=== PATIENT | male | born 1960 | race Caucasian/White ===

== ENCOUNTER 2016-10-29 10:01 | Day surgery (SDC) | payer BC ==
[2016-10-25 11:28] VITALS: BMI 27.3
[~2016-10-29 10:01] MED LIST: LACTATED RINGERS 1,000 ML IV ONE; LIDOCAINE 1% 20 ML VIAL (10MG/ML) FOR IV START INTRADERMA PRN
[2016-10-29 11:56] VITALS: RESP 16; TEMP 97
[2016-10-29] MEDS ORDERED: PROPOFOL 10 MG/ML 20 ML VIAL IV ONE (12:12)
--- NOTE | 2016-10-29 12:44 | P.PCN ---
Date of Procedure: 10/29/16 Procedure(s) Performed: Procedure: Colonoscopy and biopsy. Preoperative diagnosis: Screening for neoplasia. Postoperative diagnosis: 1. Sigmoid diverticulosis with no evidence of acute diverticulitis or strictures. 2. Small sigmoid polyp biopsied but no large polyps or cancer. Preparation: HalfLytely prep. Sedation: Was provided by anesthesia. Brief clinical history: The patient is a 55-year-old male who is referred for this evaluation for screening for neoplasia, age being his risk factor. He has no abdominal complaints, bleeding or anemia. No family history of colon cancer. This would be his first colonoscopy. Procedure: With the patient on his left lateral decubitus position, and after informed consent and adequate sedation, the perianal area was inspected and it did not show any fissures or fistulas. There were no masses felt on digital rectal examination. The Olympus CFQ 160L video colonoscope was then inserted in the rectum in the usual fashion and advanced to the cecum. There were multiple diverticular orifices seen scattered in the sigmoid but I saw no evidence of acute diverticulitis or strictures. In the sigmoid, around 30 cm from the anal verge, there was a small polyp consistent with hyperplastic polyp which I biopsied. There were no large polyps or cancer or other pathology. I retroflexed endoscope in the rectum before the endoscope was withdrawn. The patient tolerated the procedure well. Plan: The patient was reassured. Discussed dietary measures. Will await biopsy results. Consideration will be given for repeat exam in 5 years.
[2016-10-29 13:00] VITALS: BP 1115/67; PULSE 66
== END 2016-10-29 13:16 | disposition home or self-care (01) ==
LOC: ORWHC2ENDO 10:01
DX: Z12.11 Encounter for screening for malignant neoplasm of colon (principal); D12.5 Benign neoplasm of sigmoid colon; K57.30 Diverticulosis of large intestine without perforation or abscess without bleeding; I10 Essential (primary) hypertension; E78.5 Hyperlipidemia, unspecified; Z79.899 Other long term (current) drug therapy
CPT/HCPCS: 88305; 45380; J2704; 99153

== ENCOUNTER → 2019-12-05 | Outpatient (CLI) | payer OTHER ==
--- NOTE | 2019-12-05 17:31 | MR ---
EXAMINATION TYPE: MR shoulder LT wo con DATE OF EXAM: 12/05/2019 COMPARISON: None HISTORY: Left shoulder pain Multiplanar multiecho imaging of the left shoulder is performed without contrast. There is large shoulder joint effusion. There is fluid around the biceps tendon. There is small amoun t of fluid in the subdeltoid bursa. There is full-thickness vertical tear through the supraspinatus t endon. There is no retraction. There is increased signal in the tendon at the greater tuberosity of t he humerus. There is spurring and degenerative cyst formation at the AC joint. I see no fracture line. The glenoi d ania appear intact. Humeral head is intact. IMPRESSION: Large shoulder joint effusion consistent with synovitis. Full-thickness tear of the supraspinatus ten don near the greater tuberosity of the humerus. No retraction. 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
== END | disposition home or self-care (01) ==
LOC: RADMRIMAIN 08:39
PROVIDERS: ATTEND Family Medicine
DX: M75.122 Complete rotator cuff tear or rupture of left shoulder, not specified as traumatic (principal); M19.012 Primary osteoarthritis, left shoulder

== ENCOUNTER 2020-08-09 07:00 | Day surgery (SDC) | payer OTHER ==
[2020-08-05 08:46] VITALS: BMI 28.1
[~2020-08-09 07:00] MED LIST changes: +ACETAMINOPHEN TAB 500 MG TAB PO ONE; +DEXAMETHASONE SOD PHOSPHATE 10 MG/ML 1 ML VIAL IV ONE; +HEPARIN SODIUM,PORCINE 5,000 UNIT/ML 1 ML VIAL SQ ONE; -LACTATED RINGERS 1,000 ML IV ONE; +LACTATED RINGERS 1,000 ML IV SCH; +LIDOCAINE 1% (10MG/ML) FOR IV START INTRADERMA PRN; -LIDOCAINE 1% 20 ML VIAL (10MG/ML) FOR IV START INTRADERMA PRN; +ONDANSETRON 4 MG/2 ML VIAL IVP ONE; +SCOPOLAMINE 1.5MG/72HR PATCH TRANSDERM ONE
[2020-08-09] MEDS ORDERED: MIDAZOLAM 2 MG/2 ML VIAL IVP ONE (08:28)
[2020-08-09] MEDS ORDERED: fentaNYL (PF) 50 MCG/ML 2 ML AMP IVP ONE (08:28)
--- NOTE | 2020-08-09 09:20 | P.GSHP ---
History of Present Illness H&P Date: 08/09/20 Chief Complaint: Incarcerated umbilical hernia This is a 59-year-old male who presents today for laparoscopic robotic-assisted repair of incarcerated umbilical hernia. Patient developed a tender mass at his umbilicus. Past Medical History Past Medical History: Eye Disorder, Hyperlipidemia, Hypertension Additional Past Medical History / Comment(s): had rentinal occlusion rt eye, blind in right eye, chaparro legs pain, buzzing in ears History of Any Multi-Drug Resistant Organisms: None Reported Past Surgical History: Back Surgery, Orthopedic Surgery Additional Past Surgical History / Comment(s): rt foot bunionectomy,rt eye laser sx x2, metal in back. spinal fusion, lt rotator cuff Past Anesthesia/Blood Transfusion Reactions: No Reported Reaction Smoking Status: Former smoker - Past Family History Mother Family Medical History: No Reported History Medications and Allergies Home Medications Medication Instructions Recorded Confirmed Type Atorvastatin [Lipitor] 20 mg PO HS 10/25/16 08/05/20 History Gabapentin [Neurontin] 300 mg PO TID 10/25/16 08/05/20 History Losartan [Cozaar] 50 mg PO BID 10/25/16 08/05/20 History Allergies Allergy/AdvReac Type Severity Reaction Status Date / Time No Known Allergies Allergy Verified 08/09/20 08:04 Surgical - Exam Vital Signs Temp Pulse Resp BP Pulse Ox 97.1 F L 79 16 158/96 98 08/09/20 07:57 08/09/20 07:57 08/09/20 07:57 08/09/20 07:57 08/09/20 07:57 - General well developed, well nourished, no distress - Eyes PERRL - ENT normal pinna - Neck no masses - Respiratory normal expansion - Cardiovascular Rhythm: regular - Abdomen Abdomen: soft, non tender Hernia: umbilical (3 cm incarcerated umbilical hernia) Assessment and Plan Assessment: Incarcerated umbilical hernia. We'll perform laparoscopic robotic-assisted repair.
[2020-08-09] MEDS ORDERED: SUCCINYLCHOLINE CHLORIDE 100 MG/5 ML SYR IV ONE (09:37)
[2020-08-09] MEDS ORDERED: PROPOFOL 10 MG/ML 20 ML VIAL IV ONE (09:37)
[2020-08-09] MEDS ORDERED: PHENYLEPHRINE-0.9% NACL SYG 1 MG/10 ML SYRINGE ONE (09:37)
[2020-08-09] MEDS ORDERED: GLYCOPYRROLATE 0.2 MG/ML 2 ML VIAL ONE (09:37)
[2020-08-09] MEDS ORDERED: KETAMINE 10 MG/ML 20 ML VIAL ONE (09:37)
[2020-08-09] MEDS ORDERED: KETOROLAC 15 MG/ML 1 ML VIAL ONE (09:37)
[2020-08-09] MEDS ORDERED: MIDAZOLAM 2 MG/2 ML VIAL ONE (09:37)
[2020-08-09] MEDS ORDERED: LIDOCAINE 1% INJ 10MG/ML (20 ML MDV) ONE (09:37)
[2020-08-09] MEDS ORDERED: fentaNYL (PF) 50 MCG/ML 2 ML AMP ONE (09:37)
[2020-08-09] MEDS ORDERED: NEOSTIGMINE 1 MG/ML 10 ML VIAL ONE (09:37)
[2020-08-09] MEDS ORDERED: ROPIVACAINE 5 MG/ML 30 ML VIAL ONE (09:37)
[2020-08-09] MEDS ORDERED: ROCURONIUM 10 MG/ML (10 ML VIAL) IV ONE (09:37)
[2020-08-09] MEDS ORDERED: BUPIVACAINE (PF) 0.25% 30 ML VIAL SQ ONE ×2 (10:07)
[2020-08-09] MEDS ORDERED: LACTATED RINGERS 1,000 ML IV ONE (10:27)
--- NOTE | 2020-08-09 10:29 | P.ANPRN ---
Procedure Note - Anesthesia - Nerve Block Performed Bilateral Rectus Abdominis Single Time Out Performed: Yes ([id number]) Date of Procedure: 08/09/20 Procedure Start Time: : Procedure Stop Time: :34 Location of Patient: PreOp Indication: Acute Post-Operative Pain, Requested by Surgeon Specifically requested for management of pain by DrHuber: Matthew Roach Sedation Type: Sedate with meaningful contact maintained Preparation: Sterile Prep Position: Supine Catheter: None Needle Types: Pajunk Needle Gauge: 21 Ultrasound used to visualize needle placement: Yes Ultrasound used to observe medication spread: Yes Injectate: 0.5% Ropivacaine (see comment for volume) (15cc each side) Blood Aspirated: No Pain Paresthesia on Injection Noted: No Resistance on Injection: Normal Image Stored and Saved: Yes Events: Uneventful and Well Tolerated
--- NOTE | 2020-08-09 10:39 | P.OP ---
Date of Procedure: 08/09/20 Preoperative Diagnosis: Incarcerated umbilical hernia Postoperative Diagnosis: Incarcerated umbilical hernia Procedure(s) Performed: Laparoscopic robotic-assisted repair of incarcerated umbilical hernia Partial omentectomy Anesthesia: ASA Surgeon: Matthew Roach Estimated Blood Loss (ml): 5 Pathology: other (Omentum) Condition: stable Disposition: PACU Description of Procedure: The patient was placed on the operating table in the supine position. He received general anesthesia. His abdomen was prepped and draped usual fashion. Using a 5 mm optical trocar under direct visualization the peritoneal cavity was entered in the left upper quadrant. The abdomen was then insufflated. The laparoscope was placed back into the perineal cavity. Next a 8 mm robotic trocar was placed in the left lower quadrant and a 12 mm robotic trocar was placed in the left lateral position. The original 5 mm trocar was exchanged for a 8 mm robotic trocar. The patient's placed in the left side up position. And the patient was undocked the robot. The umbilical hernia was visualized. Using hook cautery the peritoneum over the umbilical hernia was excised. Pressure omentum and hernia sac was then transected with J cautery and sent to pathology. The fascial opening was rep aired using 0V LOC suture. Next a piece of 11 cm round ventral light ST mesh was placed into the. Cavity and secured with 2 OV lock suture. The patient was undocked the robot. The needles were retrieved. The fascia of the 12 mm trocar site was closed with 0 Ethibond suture. Skin was closed interrupted 3-0 Monocryl suture. Dermabond dressings was applied. Patient top procedure well and was sent to recovery room stable condition.
[2020-08-09 10:56] VITALS: TEMP 96.8
[2020-08-09] MEDS: HYDROmorphone 0.5 MG/0.5 ML SYRINGE IVP PRN ×2 (11:11→11:23)
[2020-08-09 11:30] VITALS: RESP 16
[2020-08-09 11:52] VITALS: PULSE 85
[2020-08-09 12:01] VITALS: BP 157/95
== END 2020-08-09 13:03 | disposition home or self-care (01) ==
LOC: OR 07:00
PROVIDERS: ATTEND Surgery
DX: K42.0 Umbilical hernia with obstruction, without gangrene (principal); I10 Essential (primary) hypertension; E78.5 Hyperlipidemia, unspecified; G47.33 Obstructive sleep apnea (adult) (pediatric); H54.61 Unqualified visual loss, right eye, normal vision left eye; Z99.89 Dependence on other enabling machines and devices; Z79.899 Other long term (current) drug therapy; Z87.891 Personal history of nicotine dependence; Z98.1 Arthrodesis status; Z98.890 Other specified postprocedural states
CPT/HCPCS: 64486; 88302; 49653; C1781; J2250; J1644; J1100; J2710; J0690; J2405; J2001; J3010; J2795; J1885; J2370; J0330; J2704; J1170

== ENCOUNTER → 2023-01-28 | Outpatient (CLI) | payer BC ==
[2023-01-28 11:50] LABS: Basophils # (A) 0.05 X 10*3/uL (0.00-0.10); Basophils % (A) 0.8 %; Eosinophils # (A) 0.26 X 10*3/uL (0.04-0.35); HCT 47.3 % (39.6-50.0); HGB 15.6 g/dL (13.0-17.0); Immature Grans, Automated 0.3 %; Lymphocytes # (A) 1.83 X 10*3/uL (0.90-5.00); Lymphocytes % (A) 27.9 %; MCH 28.9 pg (27.0-32.0); MCV 87.6 fL (80.0-97.0); Mean Platelet Volume 9.8 fL (9.5-12.2); Monocytes % (A) 9.1 %; NRBC Per 100 WBC 0 /100 WBCS (0.0-0.0); Neutrophils # (A) 3.81 X 10*3/uL (1.80-7.70); Neutrophils % (A) 57.9 %; Platelet Count 233 X 10*3/uL (140-440); RDW 12.5 % (11.5-14.5); WBC 6.57 X 10*3/uL (4.50-10.00)
[2023-01-28 12:01] LABS: African American GFR (CKD) 74.1 (60.0-200.0); Anion Gap 9.3 mmol/L (10.00-18.00); BUN/Creat Ratio 16.42 Ratio (12.00-20.00); Blood Urea Nitrogen 19.7 mg/dL (9.0-27.0); Calcium 9.3 mg/dL (8.7-10.3); Carbon Dioxide 25.7 mmol/L (20.0-27.5); Potassium 5.3 mmol/L (3.5-5.5)
[2023-01-28 12:09] LABS: Hepatitis B Surface AB- Quant 3.5 mIU/mL; Hepatitis B Surface Antibody Nonreactive (Nonreactive)
[2023-01-28 12:23] LABS: Hepatitis B Surface Antigen Nonreactive (Nonreactive); Hepatitis C IgG Antibody Nonreactive (Nonreactive)
== END | disposition home or self-care (01) ==
LOC: LABWHC1 07:41
PROVIDERS: ATTEND Dermatology
DX: L40.0 Psoriasis vulgaris (principal)
CPT/HCPCS: 36415; 80048; 85025; 86480; 86704; 86706; 86803; 87340

== ENCOUNTER 2023-08-13 10:09 | Emergency (ER) | payer BC ==
--- NOTE | 2023-08-13 10:34 | ED ---
General Adult HPI - General Chief complaint: Recheck/Abnormal Lab/Rx Stated complaint: Swalled Tooth Filling Time Seen by Provider: 08/13/23 10:23 Source: patient, RN notes reviewed Mode of arrival: ambulatory Limitations: no limitations - History of Present Illness Initial comments: Patient is 62-year-old male presented to ER with chief complaint of swallowing a foreign body. Patient was at the dentist this morning when she felt like he swallowed and instrument. X-rays were done at the dentist office which shows foreign body is present. Patient states he feels discomfort feeling in his abdomen but denies any pain nausea vomiting. Patient denies difficulty breathing or swallowing. - Related Data Home Medications Medication Instructions Recorded Confirmed Atorvastatin [Lipitor] 20 mg PO HS 10/25/16 08/05/20 Gabapentin [Neurontin] 300 mg PO TID 10/25/16 08/05/20 Losartan [Cozaar] 50 mg PO BID 10/25/16 08/05/20 Previous Rx's Medication Instructions Recorded Acetaminophen Tab [Tylenol] 650 mg PO Q6H #30 tab 08/09/20 Docusate [Colace] 100 mg PO BID #20 capsule 08/09/20 Ibuprofen [Motrin] 600 mg PO Q6HR PRN #40 tab 08/09/20 oxyCODONE HCL [OxyIR] 5 mg PO Q4H PRN 3 Days #18 tab 08/09/20 Allergies Allergy/AdvReac Type Severity Reaction Status Date / Time No Known Allergies Allergy Verified 08/13/23 10:22 Review of Systems ROS Statement: Those systems with pertinent positive or pertinent negative responses have been documented in the HPI. ROS Other: All systems not noted in ROS Statement are negative. Past Medical History Past Medical History: Diabetes Mellitus, Hypertension Additional Past Medical History / Comment(s): had rentinal occlusion rt eye, blind in right eye, chaparro legs pain History of Any Multi-Drug Resistant Organisms: None Reported Past Surgical History: Back Surgery, Orthopedic Surgery Additional Past Surgical History / Comment(s): rt foot bunionectomyrt eye laser sx x2, metal in back Past Anesthesia/Blood Transfusion Reactions: No Reported Reaction Past Psychological History: No Psychological Hx Reported Smoking Status: Never smoker Past Alcohol Use History: Occasional Past Drug Use History: None Reported - Past Family History Mother Family Medical History: No Reported History General Exam Limitations: no limitations General appearance: alert, in no apparent distress Respiratory exam: Present: wheezes (bilaterally present) Cardiovascular Exam: Present: regular rate, normal rhythm, normal heart sounds. Absent: systolic murmur, diastolic murmur, rubs, gallop, clicks GI/Abdominal exam: Present: soft, normal bowel sounds. Absent: distended, tenderness, guarding, rebound, rigid Psychiatric exam: Present: normal affect, normal mood Skin exam: Present: warm, dry, intact, normal color. Absent: rash Course Vital Signs 08/13/23 08/13/23 08/13/23 10:19 11:34 11:56 Temperature 98.2 F 98 F Pulse Rate 73 77 Respiratory 18 18 18 Rate Blood Pressure 167/98 171/93 O2 Sat by Pulse 99 96 Oximetry Medical Decision Making - Medical Decision Making Was pt. sent in by a medical professional or institution (Dr. PA, ANIMAL PATHOLOGY TEACHER, urgent care, hospital, or residential...) When possible be specific @ -Yes his dentist Did you speak to anyone other than the patient for history (EMS, parent, family, police, friend...)? What history was obtained from this source @ -No Did you review nursing and triage notes (agree or disagree)? Why? @ -I reviewed and agree with nursing and triage notes Were old charts reviewed (outside hosp., previous admission, EMS record, old EKG, old radiological studies, urgent care reports/EKG's, residential records)? Report findings @ -No old charts were reviewed Differential Diagnosis (chest pain, altered mental status, abdominal pain women, abdominal pain men, vaginal bleeding, weakness, fever, dyspnea, syncope, headache, dizziness, GI bleed, back pain, seizure, CVA, palpatations, mental health, musculoskeletal)? @ -Foreign body, aspiration, choking EKG interpreted by me (3pts min.). @ -None X-rays interpreted by me (1pt min.). @ -Chest x-ray significant for metallic foreign body in distal esophagus. KUB does not show any foreign body. CT interpreted by me (1pt min.). @ -None done U/S interpreted by me (1pt. min.). @ -None done What testing was considered but not performed or refused? (CT, X-rays, U/S, labs)? Why? @ -None What meds were considered but not given or refused? Why? @ -None Did you discuss the management of the patient with other professionals (professionals i.e. DrHuber, PA, ANIMAL PATHOLOGY TEACHER, lab, RT, psych nurse, criminal justice social worker, php magento developer, teacher, space operations officer, shoe caser)? Give summary @ -[Yes, Dr. Beal will remove foreign body by EGD. Was smoking cessation discussed for >3mins.? @ -No Was critical care preformed (if so, how long)? @ -No Were there social determinants of health that impacted care today? How? (Homelessness, low income, unemployed, alcoholism, drug addiction, transportation, low edu. Level, literacy, decrease access to med. care, [facility], rehab)? @ -No Was there de-escalation of care discussed even if they declined (Discuss DNR or withdrawal of care, Hospice)? DNR status @ -No What co-morbidities impacted this encounter? (DM, HTN, Smoking, COPD, CAD, Cancer, CVA, ARF, Chemo, Hep., AIDS, mental health diagnosis, sleep apnea, morbid obesity)? @ -None Was patient admitted / discharged? Hospital course, mention meds given and route, prescriptions, significant lab abnormalities, going to OR and other pertinent info. @ -[Discharge. Patient is 62-year-old male presented to the ER with chief complaint of swallowing a foreign body at his dentist. Chest x-ray significant for metallic foreign body in distal esophagus. Patient will go to Endo and receive an EGD for removal of the foreign body by Dr. Beal. Patient will be discharged home in stable condition. Undiagnosed new problem with uncertain prognosis? @ -No Drug Therapy requiring intensive monitoring for toxicity (Heparin, Nitro, Insulin, Cardizem)? @ -No Were any procedures done? @ -No Diagnosis/symptom? @ -Foreign body in esophagus Acute, or Chronic, or Acute on Chronic? @ -Acute Uncomplicated (without systemic symptoms) or Complicated (systemic symptoms)? @ -Uncomplicated Side effects of treatment? @ -No Exacerbation, Progression, or Severe Exacerbation? @ -No Poses a threat to life or bodily function? How? (Chest pain, [place], [place], pneumonia, PE, COPD, DKA, ARF, appy, cholecystitis, CVA, Diverticulitis, Homicidal, Suicidal, threat to staff... and all critical care pts) @ -No Disposition Clinical Impression: Foreign body in esophagus Disposition: HOME SELF-CARE Condition: Stable Additional Instructions: Please return to the Emergency Department if symptoms worsen or any other concerns. Is patient prescribed a controlled substance at d/c from ED?: No Referrals: Taylor Boudreaux DO [Primary Care Provider] - 1-2 days Time of Disposition: 12:04
--- NOTE | 2023-08-13 11:41 | XR ---
EXAMINATION TYPE: XR chest 2V DATE OF EXAM: 08/13/2023 COMPARISON: None INDICATION: Foreign body TECHNIQUE: Frontal and lateral views of the chest are obtained. FINDINGS: The heart size is normal. The pulmonary vasculature is normal. The lungs are clear. There is a horseshoe shaped metallic type density within the mid chest can be related to a foreign nancy dy within the esophagus. This appears to lie below the level of the left bronchus. IMPRESSION: 1. Metallic foreign body appears to be within the distal esophagus region.
--- NOTE | 2023-08-13 11:46 | XR ---
EXAMINATION TYPE: XR KUB DATE OF EXAM: 08/13/2023 COMPARISON: Chest x-ray same date INDICATION: Foreign body TECHNIQUE: Single view abdomen upright view FINDINGS: There is a nonspecific bowel gas pattern. No suspicious air-fluid levels or differential air-fluid le vels are present. No free air is present. Psoas margins are normal. No organomegaly is present. No radiopaque foreign bodies are evident. The expected pedicle screws at L4 and L5 on the right remai n present and stable. See also chest x-ray report for suspected foreign body. IMPRESSION: 1. No suspicious radiopaque foreign bodies within the [id number].
[2023-08-13 12:14] VITALS: TEMP 98
[2023-08-13] MEDS ORDERED: PROPOFOL 10 MG/ML 20 ML VIAL IV ONE (12:19)
[2023-08-13] MEDS ORDERED: LIDOCAINE 1% INJ 10MG/ML (20 ML MDV) ONE (12:19)
[2023-08-13] MEDS ORDERED: SODIUM CHLORIDE 0.9% 500 ML IV ONE (12:34)
--- NOTE | 2023-08-13 12:35 | P.PCN ---
Date of Procedure: 08/13/23 Procedure(s) Performed: BRIEF HISTORY: Patient is a 62-year-old, pleasant, white male scheduled for an upper endoscopy as a part of evaluation of esophageal foreign body. He was advised his dentures for a tooth filling and while the procedure was being performed patient accidentally swallowed a metal ring. He was sent to the emergency room and a chest x-ray revealed the foreign body lodged in the midesophagus. Patient has been complaint of severe chest pain radiating to the back. He scheduled for an upper endoscopy with foreign body removal PROCEDURE PERFORMED: Esophagogastroduodenoscopy and foreign body removal. PREOPERATIVE DIAGNOSIS: Esophageal foreign body. IV sedation per anesthesia. PROCEDURE: After informed consent was obtained, the patient was brought into the endoscopy unit. IV sedation was administered by Anesthesia under continuous monitoring. Initially the Olympus GIF-140 video endoscope was inserted into the mouth. Esophagus intubated without any difficulty. The midesophagus there was a horse shoe shaped metal objject lodged in the mid esophagus and with the tripod I was able to dislodge the piece without any difficulty into the distal esophagus.. Following this I used a snare and gently grabbed the end of the object and was able to withdraw along with the scope out of the mouth. The scope was reintroduced into the mouth and esophagus intubated without any difficulty. It was gradually advanced into the stomach and duodenum and carefully examined. The bulb and the second part of the duodenum appeared normal. The scope at this time was withdrawn to the stomach, adequately insufflated with air, and upon careful examination, mucosa of the antrum, body, cardia and the fundus appeared normal. The scope was then withdrawn into the esophagus. The GE junction was located at 39 cm from the incisors. The esophawas carefully examined and there was a superficial bruising noted in the mid esophagus at the site where the foreign body was large. There was a mucosal tear identified. The rest of esophagus appeared normal and the patient tolerated the procedure well. IMPRESSION: 1. Horse show shaped and metallic foreign body in the midesophagus status post removal as described above. 2. Mucosal irritation noted at the site of foreign body impaction but no mucosal tears noted.. RECOMMENDATIONS: The findings of this examination were discussed with the patient as well as his family. He will be discharged home after recovery..
[2023-08-13 13:22] VITALS: RESP 12
[2023-08-13 13:45] VITALS: BP 138/76; PULSE 81
--- NOTE | 2023-08-13 23:11 | CONS ---
CONSULTATION REQUESTING PHYSICIAN: Taylor Boudreaux REASON FOR CONSULTATION: Acute esophageal foreign body. HISTORY OF PRESENT ILLNESS: The patient is a 62-year-old pleasant white male. He was sent up from the dentist's office to the emergency room after he accidentally swallowed a metal object while he was having a tooth filling. The patient subsequently developed severe chest pain. He came to the emergency room and he had a chest x-ray done that revealed a metallic foreign body in the mid esophagus and hence we are consulted for esophageal foreign body removal. The patient denies any prior history of similar episodes. No history of dysphagia. PAST MEDICAL HISTORY: Significant for hypertension, and hypercholesterolemia. MEDICATIONS: Medications at home include, 1. Lipitor. 2. Neurontin. 3. Cozaar. ALLERGIES: None. SOCIAL HISTORY: No smoking. No alcohol use. FAMILY HISTORY: Unremarkable. PAST SURGICAL HISTORY: Right foot bunionectomy, back surgery. REVIEW OF SYSTEMS: CARDIOPULMONARY: He complains of chest pain, but no shortness of breath. GENITOURINARY: No dysuria or hematuria. MUSCULOSKELETAL: Unremarkable. SKIN: Unremarkable. ENDOCRINE: Unremarkable. PSYCHIATRIC: Unremarkable. NEUROLOGY: Unremarkable. ENT/VISION: Unremarkable. CONSTITUTIONAL: No recent weight loss. No fever, chills, or night sweats. PHYSICAL EXAMINATION: GENERAL: He appears comfortable. VITAL SIGNS: Blood pressure 161/98, pulse rate 73, temperature 98.2. HEENT: Unremarkable. Conjunctivae pale. Sclerae anicteric. Oral cavity, no lesions. NECK: No JVD or lymph node enlargement. CHEST: Clear to auscultation. HEART: Regular rate and rhythm. ABDOMEN: Soft. Bowel sounds are positive. No organomegaly. EXTREMITIES: No pedal edema. SKIN: No rashes. NEUROLOGIC: Alert and oriented x3. No focal deficits. LABORATORY DATA: No labs available. IMPRESSION: 1. Acute esophageal foreign body. 2. Chest pain secondary to esophageal foreign body. RECOMMENDATIONS: We will proceed with EGD with foreign body removal. I discussed with the patient risks, benefits, and complications of the procedure and he is agreeable to it. Thank you for this consultation. MMODL / IJN: [id number] /
== END 2023-08-13 15:57 | disposition home or self-care (01) ==
LOC: EC 10:09
DX: T18.108A Unspecified foreign body in esophagus causing other injury, initial encounter (principal); E11.9 Type 2 diabetes mellitus without complications; I10 Essential (primary) hypertension; Z79.899 Other long term (current) drug therapy
CPT/HCPCS: 71046; 74018; 43247; 99283; J2001; J2704

== ENCOUNTER → 2023-10-16 | Outpatient (CLI) | payer OTHER ==
[2023-10-16 15:15] LABS: Basophils # (A) 0.06 X 10*3/uL (0.00-0.10); Basophils % (A) 0.9 %; Eosinophils # (A) 0.23 X 10*3/uL (0.04-0.35); Eosinophils % (A) 3.6 %; HCT 46.2 % (39.6-50.0); HGB 15.4 g/dL (13.0-17.0); Lymphocytes # (A) 1.96 X 10*3/uL (0.90-5.00); Lymphocytes % (A) 30.3 %; MCHC 33.3 g/dL (32.0-37.0); Mean Platelet Volume 10.6 FL (9.5-12.2); Monocytes # (A) 0.75 X 10*3/uL (0.20-1.00); Monocytes % (A) 11.6 %; NRBC Per 100 WBC 0 X 10*3/uL (0.00-0.01); Neutrophils # (A) 3.44 X 10*3/uL (1.80-7.70); Neutrophils % (A) 53.1 %; Platelet Count 260 X 10*3/uL (140-440); RBC 5.31 X 10*6/uL (4.40-5.60); RDW 12.7 % (11.5-14.5); WBC 6.47 X 10*3/uL (4.50-10.00)
[2023-10-16 15:17] LABS: ALT 53 U/L (10-49)
[2023-10-16 15:18] LABS: AST 31 U/L (14-35)
== END | disposition home or self-care (01) ==
LOC: LABWHC1 09:42
PROVIDERS: ATTEND Dermatology MOHS-Micrographic Surgery
DX: L40.0 Psoriasis vulgaris (principal)
CPT/HCPCS: 36415; 82565; 84450; 84460; 85025; 86480

== ENCOUNTER → 2024-10-15 | Outpatient (CLI) | payer OTHER ==
[2024-10-15 15:58] LABS: Basophils # (A) 0.04 X 10*3/uL (0.00-0.10); Basophils % (A) 0.6 %; Eosinophils # (A) 0.16 X 10*3/uL (0.04-0.35); Eosinophils % (A) 2.2 %; HCT 44.6 % (39.6-50.0); HGB 15.6 g/dL (13.0-17.0); Lymphocytes # (A) 2.37 X 10*3/uL (0.90-5.00); Lymphocytes % (A) 32.8 %; MCH 29.3 pg (27.0-32.0); MCV 83.8 FL (80.0-97.0); Mean Platelet Volume 9.9 FL (9.5-12.2); Monocytes # (A) 0.86 X 10*3/uL (0.20-1.00); Monocytes % (A) 11.9 %; NRBC Per 100 WBC 0 X 10*3/uL (0.00-0.01); Neutrophils # (A) 3.76 X 10*3/uL (1.80-7.70); Neutrophils % (A) 51.9 %; Platelet Count 271 X 10*3/uL (140-440); RBC 5.32 X 10*6/uL (4.40-5.60); RDW 12.5 % (11.5-14.5); WBC 7.23 X 10*3/uL (4.50-10.00)
[2024-10-15 16:06] LABS: ALT 51 U/L (10-49); AST 28 U/L (14-35); Blood Urea Nitrogen 17.1 mg/dL (9.0-27.0)
== END | disposition home or self-care (01) ==
LOC: LABWHC1 11:53
PROVIDERS: ATTEND Dermatology
DX: D22.4 Melanocytic nevi of scalp and neck (principal); L81.4 Other melanin hyperpigmentation; L40.0 Psoriasis vulgaris; L82.1 Other seborrheic keratosis; D22.5 Melanocytic nevi of trunk; D22.71 Melanocytic nevi of right lower limb, including hip
CPT/HCPCS: 36415; 82565; 84450; 84460; 84520; 85025; 86480